=== PATIENT | male | born 1945 | race Caucasian/White ===

== ENCOUNTER 2018-11-28 16:33 | Inpatient (IN) | payer OTHER ==
[~2018-11-28] VITALS: Ht 170.2 cm; Wt 56.7 kg
[2018-11-28 16:35] VITALS: Ht 170.2 cm; Wt 56.7 kg
--- NOTE | 2018-11-28 16:42 | NUR ---
PER MEDIC PT HAS BEEN VOMITING BLACK COFFEE GROUND EMESIS FOR 2 DAYS. PER PT HE IS ALSO HAVING BLACK STOOLS FOR A FEW DAYS. PER MEDIC FAMILY STS PT HAS BEEN HAVING A FEVER. MEDIC STS [employer]RI[employer] ON CM, COPD, BG 110, LUNG CANCE. MEDIC PLACED PT ON BIPAP. PER PT HE WAS SOB EARLIER TODAY AND COULDNT CATCH HIS BREATH. UPON AUSCULTATION PT HAS COURSE CRACKLES DEIRDRE. EKG IN PROGRESS. PT ALERT AND ORIENTED AND STATING HE DOES NOT WANT LIFE SUSTAINING PROCEDURE WITH DR. WOODWARD AT BEDSIDE. PT PLACED ON FULL CM. RESP AT BEDSIDE. STRUCTURAL ENGINEERING DRAFTING OFFICER RECTAL EXAM WITH DR. WOODWARD. VSS. WILL CONTINUE TO MONITOR.
[2018-11-28] MEDS ORDERED: [UNRECOGNIZED DRUG - OTHER] (16:46)
[2018-11-28] MEDS ORDERED: COL-RITE100 M2 PO (16:47)
--- NOTE | 2018-11-28 16:54 | NUR ---
PER DAUGHTER PT DIAGNOSED WITH STAGE 4 LUNG CANCER AND IS NOT RECEIVING TX.
[2018-11-28 17:25] LABS: BASOPHIL % 0.3 % (0-2); PLATELET COUNT 266 x10^3mcL (130-400)
[2018-11-28 17:27] LABS: RED CELL DISTRIBUTION WIDTH 16.4 % (11.5-14.5)
--- NOTE | 2018-11-28 17:39 | NUR ---
DR. WOODWARD AT BEDSIDE.
--- NOTE | 2018-11-28 17:39 | NUR ---
RESP AT BEDSIDE FOR REMOVAL OF BIPAP.
[2018-11-28 17:40] LABS: CALCIUM 9.1 mg/dL (8.5-10.1); CARBON DIOXIDE 34.4 mmol/L (21-32); CHLORIDE SERUM 104 mmol/L (98-107); CREATININE SERUM 0.7 mg/dL (0.7-1.3); GLUCOSE SERUM 101 mg/dL (74-106); SODIUM SERUM 144 mmol/L (136-145)
[2018-11-28 17:52] LABS: ALKALINE PHOSPHATASE 383 U/L (46-116); ALT/SGPT 45 U/L (16-63); AST/SGOT 160 U/L (15-37); BILIRUBIN TOTAL 0.37 mg/dL (0.20-1.00); CHOLESTEROL 187 mg/dL (<200); HDL CHOLESTEROL 38 mg/dL (40-60); LIPASE 72 IU/L (73-393); TOTAL PROTEIN, SERUM 6.6 g/dL (6.4-8.2)
--- NOTE | 2018-11-28 18:08 | NUR ---
RESP AT BEDSIDE. PT FAMILY STS THAT PT HAD SYNCOPAL EPISODE. PER FAMILY PT "EYES ROLLED BACK". DR. WOODWARD MADE AWARE. PT IN POSITION OF COMFORT. ALERT AND ORIENTED.
--- NOTE | 2018-11-28 18:41 | NUR ---
PT CONTINUING TO SPIT UP SPUTUM THAT IS A BROWN COLOR. DR. WOODWARD MADE AWARE. PT STS THAT HE CANNOT CATCH HIS BREATH. DR. WOODWARD MADE AWARE. PT ON 3L NC. WILL CONTINUE TO MONITOR. VSS. WILL CONTINUE TO MONITOR.
--- NOTE | 2018-11-28 19:14 | NUR ---
DR. WOODWARD AT BEDSIDE.
--- NOTE | 2018-11-28 19:14 | NUR ---
PT IN POSITION OF COMFORT. FAMILY AT BEDSIDE. VSS. WILL CONTINUE TO MONITOR.
--- NOTE | 2018-11-28 19:24 | NUR ---
REPORT GIVEN TO ELOY MCCAULEY, TO ASSUME CARE OF PT.
--- NOTE | 2018-11-28 19:37 | NUR ---
NURSE LYONS MADE AWARE OF NO END TIMES ON MEDICATION AND FLUIDS.
--- NOTE | 2018-11-28 20:20 | NUR ---
REPORT WAS GIVEN TO ONI. PATIENT TRANSPORTED TO ROOM 206B. PATIENT IS SLEEPING, BNUT EASILY AWAKE, NO APPARENT DISTRESS. SALINE INFUSING @ 150 ML/HR.
--- NOTE | 2018-11-28 20:30 | NUR ---
[facility] Awake, alert and oriented. SOB on exertion. on 02 3lpm via n/c. Denies n/v. Generalized body pain. Admission assessment done. No skin breakdown. Unable to walk, very weak. Stood up with assist. Fall precaution observed. Call light within reach. Will cont.to monitor.
[2018-11-28 22:07] VITALS: BP 140/98
--- NOTE | 2018-11-29 04:38 | NUR ---
Pt's.daughter came out of the room and very upset and concerned about the patient being so restless, agitated, trying to get out of bed and in pain. notified with orders given and carried out. Ativan and morphine IV given as ordered. Pt.appears comfortable at this time. Daughter very thankful.
[2018-11-29 05:44] VITALS: BP 104/59
--- NOTE | 2018-11-29 06:03 | NUR ---
Sleeping at this time. Appears comfortable. No respiratory distress noted.
--- NOTE | 2018-11-29 08:00 | NUR ---
SON AT BEDSIDE AND SUPPORTIVE WITH CARE. PATIENT DOES NOT SEEM IN ANY DISTRESS AT THIS TIME. HE DOES NOT SEEM TO BE IN ANY PAIN AND IS NOT RESTLESS OR AGITATED. WILL CONTINUE TO MONITOR.
[2018-11-29 08:31] VITALS: BP 103/68
--- NOTE | 2018-11-29 09:00 | NUR ---
SPOKE WITH PATIENT'S DAUGHTER-YR WHO SAID THAT THE FAMILY REQUEST IS TO KEEP PATIENT COMFORTABLE AND ALSO HAVE HOSPICE EVALUATION. DR LEÓN MADE AWARE AND HE SAID TO HAVE HOSPICE CONTACTED AND KEEP PATIENT ONLY COMFORT MEASURES FAMILY IS REQUESTING. AUDITING SPECIALIST MADE AWARE ABOUT ORDER FOR HOSPICE EVALUATION AND ORDER AND RECOMMENDATIONS. ATTENDING NURSE EMANUEL MADE AWARE.
--- NOTE | 2018-11-29 09:14 | NUR ---
RECEIVED PATIENT LETHARGIC AND IN A DEEP SLEEP AT THIS TIME. THE ROOM IS VERY COLD. WHEN ASKED THE FAMILY THEY STATE THE PATIENT SEEMS TO BE BETTER WITH THE ROOM COLD. PATIENT ERINS DIMINISHED BREATH SOUNDS WITH AUDIBLE FINE CRACKLE ADN NO COUGH AT THIS TIME. PATIENT HAD APPARENTLY REFUSED THE MEDICATIONS OFFERE AND THE IV FLUD SOR THE BI PAP OR RESPIRATORY CARE. FAMILY IS WANTING HOSPICE EVAL AND PALATIVE CARE. PATIENTREANNA NOT YET BEE SEEN BY THE HOSPICE. PATIENTZCA RECEIVED MORPHINE FOR PAIN AND DID NOT SEEM IN PAIN BUT FAMILY REQUESTED ANOTHER INJECTION ATT HIS TIME FOR PAIN. HE HAS SOME SLIGHT EDMEA TO THE LOWER EXTREMRTIES AND THE SKIN ISCOLD TO THE TOUCH. FAMILY DOES NOT PATIENT DISTURBED AND HE SEEMS SO COMFORTABLE AT THIS TIME. FAMILY SPEAK TO EACH OTHER STAFF FEELS THE PLAN FOR THEM IS TO HAVE THE PATIENT MEET END OF LIFE AT THE HOSPITAL THE FAMILY CAN NOT HANDLE THE CRISIS AT HOME AND FEELS THE HOSPICE WOULD NOT GET TO THE FAMILY ON TIME LIKE WHEN THE PATIENT WAS VOMITING UP BLOOD. THE PATIENT PER REPORT HAS GIVEN UP AND IS REFUSING ALL TREATMENTS. 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 HE HAS VITALS AT THIS TIME AT 98.6, 85, 18, 104/59, 93%. PATIENT AHS NEAR COMPLET OPACIFICATION FO FELIPE LEFT HEMITHORAX AND A LEFT LOWER LOBE INFILATRATE. MOORE ROHITH BEE RESTLESS ON AND OFF AND WAS LIVING ALONE. NO EMESIS AT THIS TIME.
--- NOTE | 2018-11-29 09:38 | NUR ---
RECEIVED CALL FROM DARIA -ELEMENTARY EDUCATION TUTOR AND INFORMED HER ABOUT HOSPICE EVALUATION ORDER. PATIENT'S DAUGHTER RY HERE AND SHE SAID THAT FAMILY DOES NOT HAVE ANY PREFERENCES AND SHE IS IN AGREEMENT WITH [facility] EVALUATION. SPOKE WITH FARIDA FROM [facility] AND PROVIDED HER WITH ORDER, PATIENT'S INFORMATION AND DAUGHTER RY PHONE NUMBER. PER FARIDA A NURSE WILL COME TO EVALUATE THE PATIENT AND SPEAK WITH THE FAMILY. ATTENDING NURSE ELENITA MADE AWARE.
--- NOTE | 2018-11-29 10:22 | NUR ---
CHARGE NURSE SPOKE [facility] ABOUT ARRANGING THE HOSPICE FOR THE PATIENT. PER THE CHARGE NURSE A NUMBER WHERE FAMILY CAN BE REACHED WAS GIVEN.
[2018-11-29 15:21] VITALS: BP 103/68
[2018-11-29 16:55] VITALS: BP 113/74
--- NOTE | 2018-11-29 16:58 | NUR ---
GAVE MORPHINE PER FAMILY REQUEST AND PATIENT HAS BEEN COMFORTABLE. LEFT THE ROOM AND LESS THAN FIVE MINUTES THE PATIENT FAMILY IS REQUESTING MORE MEDICATION. HOSPICE NURSE IS WORKING ON THE TRANSFER AND PLAN OF CARE IS FOR DISCHARGE HOME WITH HOSPICE TODAY.AWAITING THE ARRANGEMENTS INDICATED.
--- NOTE | 2018-11-29 17:50 | NUR ---
GAVE ANOTHER DOSING OF 2 MG OF IV MORPHINE. THE PATIENT BECAME MORE AWAKE AND ANXIOUS POST THE HOSPICE EVAL AND THE TALK OF GOING HOME. PATIENT THOUGH IS GETTING DISTRESS HE IS EXCITED ABOUT THE TRIP AND BEING IN HIS OWN HOME. PATIENT WANTS UP IS SO COMMON IS ANYONE THAT IS TOLD HE CAN GO HOME HE WANTS TO EXPEDIATE THIS [place]. PATIENT GIVEN ATIVAN PO AND CRUSHED AND WAS GIVEN IN WATER VIA SYRINGE. PATIENT HAS FAMILY AT BEDSIDE AND PATIENT WILL BE MONITORED FOR EFFECTIVNESS. PATIENT IS TO GO HOME TO BASICALLY . FAMILY IS CONCERNED ABOUT HIS TRANSFER AND ARE AWARE THIS IS WHAT THE PATIENT WANTS. PAPERWORK IN PLACE AND WILL GIVE PACKET INDICATED. HE IS EXPRESSING HE WANTS TO LEAVE BUT DOES NOT EXPRESS PAIN BUT MORE THAN HE WANTS TO GET UP AND OUT OF THE HOSPITAL. THE HOSPICE NURSE IS AWARE OF ORDERS AND SHE IS WANTING STAFF TO GIVE MORPHIN MORE OFTEN AND KEEP HIM IN A SLEEP ALMOST LETHARGIC STATE. ON OBSERVANCE STAFF NOTED HE HAS BEEN COMFORTABLE UP TILL NOW AND AND HAD NO RATIONAL FOR MEDICATING WITH CLOSER IV PUSHES. STAFF FEELS THE PATIENT WAS GETTING THE MEDICATION NEEDED FOR PAIN RELIEF. STAFF FEELS AND BEEN INFORM BY THE HOSPICE NURSE THAT THAT WHAT THEY DO AND THEY KEEP THE PATIENT HEAVILY MEDICATED SO THEY DO NOT HAVE PAIN OR GET AGITATED.
--- NOTE | 2018-11-29 18:21 | NUR ---
HOSPICE NURSE IS INSISTANT ON STAFF GIVING MORE ATIVAN AND MORPHINE. CALLED DR LEÓN DUE TO SUSPICIOUS HOLD IN [place] ON THE MAY AND TO SEE IF THE PATIENT CAN INDEED HAVE ATIVAN IVP. ADVISED DR LEÓN ABOUT WHAT WAS GIVEN THE PATIENT. HE OKED TO GIVE THE FULL DOSE OF ATIVAN. ADVISED THE FAMILY THIS COULD SEND HIM VERY QUICKLY TO SUDDEN DUE TO THE PATIENT HAS ALREADY RECEIVED A DOSING MORPHINE AND HAS BEEN RECEIVING MORPHINE AROUND THE CLOCK AND NOW ORAL UNDER THE TONGUE OF ONE MG AND NOW ANOTHER DOSE OF MORPHINE 2MG IVP. PER THE INSISTANCE OF THE HOSPICE NURSE STAFF AGREE TO GIVE BUT ONLY AFER CONFIRING WITH DR LEÓN. APPARENTLY THE HOLD PER THE FAMILY WAS DUE TO PATIENTS ONSET OF CONFUSION AND AGITATION LAST NIGHT WHEN RECEIVED ATIVAN IVP WITH AMBIEN. WILL CONTINUE TO MOEIOR INDICATED. FAMILY STATES "HE IS ALREADY ON HIS WAY TO DYING," AND SHE WANTS HIM NOT TO BE AGITATED.
--- NOTE | 2018-11-29 18:55 | NUR ---
CHECKED IN ON THE PATIENT AND PATIENT IS BREATHING SOME WHAT HEAVY BUT NOT AGITATED AT THIS TIME. FAMILY AT BEDSIDE. THE PLAN OF CARE IS FOR TRANSFER BY AMBULANCE HOME AROUND 9PM TONIGHT. PATIENT WILL BE FOLLOWED BY [facility].
--- NOTE | 2018-11-29 19:40 | NUR ---
RECEIVED PT IN BED ASLEEP. PT WAS MEDICATED WITH ATIVAN BY AM NURSE FOR AGITATION. PT CALM AT THIS TIME. W/ MILDLY LABORED BREATHING. ON O2 AT 3.5L VIA N/C. PT HAS NO C/O PAIN AT THIS TIME. W/ HL TO [facility] INTACT. PT IS WAITING FOR D/C HOME W/ HOSPICE TONIGHT. FAMILY AT BEDSIDE.
--- NOTE | 2018-11-29 22:20 | NUR ---
PT STARTING TO GET AGITATED PER FAMILY. ATIVAN 2 MG IV GIVEN TO HELP PT CALM DOWN.
--- NOTE | 2018-11-29 23:02 | NUR ---
PT TAKEN HOME W/ HOSPICE VIA MEDICAL TRANSPORT. PT APPEARS QUIET AND CALM AFTER ATIVAN 2 MG IV WAS GIVEN. FAMILY PRESENT AT DISCHARGE .
== END 2018-11-29 23:00 | disposition hospice, home (50) | DRG 180 ==
LOC: ED 16:33 → MU 19:32
PROVIDERS: Emergency Medicine; ADMIT Internal Medicine
DX: C78.00 Secondary malignant neoplasm of unspecified lung (principal); J96.01 Acute respiratory failure with hypoxia; J18.8 Other pneumonia, unspecified organism; R04.2 Hemoptysis; M62.82 Rhabdomyolysis; E87.6 Hypokalemia; I25.10 Atherosclerotic heart disease of native coronary artery without angina pectoris; J44.9 Chronic obstructive pulmonary disease, unspecified; Z68.21 Body mass index [BMI] 21.0-21.9, adult; Z87.891 Personal history of nicotine dependence; Z66 Do not resuscitate; Z51.5 Encounter for palliative care
CPT/HCPCS: 36600; 82962; 83880; G0378; G0480; J2060; J2270; J2543; J2550; J2930; J3010; J3411; J3475; J3490; J7030; J7042; J7613; J7644